=== PATIENT | female | born 1980 | race Caucasian/White ===

== ENCOUNTER 2016-09-19 14:05 | Emergency (ER) ==
[2016-09-19] MEDS ORDERED: BENADRYL IM ONE (16:28)
[2016-09-19] MEDS ORDERED: DECADRON IM ONE (16:28)
[2016-09-19] MEDS ORDERED: PEPCID PO ONE (16:28)
--- NOTE | 2016-09-19 16:38 | PROVIDER DOCUMENTATION ---
HPI-Rash/Wound/ReCheck - General Chief Complaint: Rash Stated Complaint: rash Time Seen by Provider: 09/19/16 15:31 Source: patient Allergies/Adverse Reactions: Allergies Allergy/AdvReac Type Severity Reaction Status Date / Time No Known Allergies Allergy Verified 09/19/16 17:01 Home Medications: Home Medication List Medication Instructions Recorded Confirmed Last Taken Type Acyclovir [Zovirax] 800 mg PO TID #30 tablet 09/19/16 Unknown Rx Citalopram [Celexa] 20 mg PO DAILY 09/19/16 09/19/16 09/19/16 06:30 History Famotidine [Pepcid] 20 mg PO BID #30 tablet 09/19/16 Unknown Rx Hydroxyzine [Atarax] 25 mg PO TID #30 tablet 09/19/16 Unknown Rx Methylprednisolone [Medrol Dosepak] 4 mg PO DIRECTED #1 package 09/19/16 Unknown Rx Sulfamethoxazole/Trimethoprim 1 each PO BID #14 tablet 09/19/16 Unknown Rx [Bactrim Ds Tablet] - History of Present Illness-Dermatology Nature of Presenting Problem: 36 y/o F c/o rash x 1 month. Pt states that she has had this rash before, was seen at [facility] and sent home with Abx and steroids x 2 months ago. States that the rash went away and came back 3 days later. States itchy in nature. Reports that it started on the LE and now has spread to the trunk and UE. Denies any other sxs. Review of Systems - Adult - REVIEW OF SYSTEMS - ADULT Constitutional: reports: no symptoms reported. denies: chills, fever Eyes: reports: no symptoms reported. denies: blurred vision, double vision Ears, Nose, Mouth & Throat: reports: no symptoms reported. denies: ear pain, nose pain Cardiovascular: reports: no symptoms reported. denies: chest pain, palpitations Respiratory: reports: no symptoms reported. denies: dyspnea on exertion, shortness of breath Gastrointestinal: reports: no symptoms reported. denies: nausea, vomiting Genitourinary: reports: no symptoms reported Musculoskeletal: reports: no symptoms reported. denies: joint pain, joint swelling Integumentary: reports: see HPI, itching, rash. denies: nail changes Neurological: reports: no symptoms reported. denies: numbness, paresthesia Psychiatric: reports: no symptoms reported Endocrine: reports: no symptoms reported. denies: cold intolerance, heat intolerance Hematologic/Lymphatic: reports: no symptoms reported. denies: easy bruising, prolonged bleeding Allergic/Immunologic: reports: no symptoms reported All Other Systems: Reviewed and Negative Past History - Adult - PAST MEDICAL HISTORY-ADULT Review of Records: reports: Nursing Assessment Review, Medications Reviewed Major Childhood Illnesses: reports: denies history Cardiovascular: reports: denies history Respiratory: reports: denies history Gastrointestinal: reports: denies history Obstetrical/Gynecological: reports: denies history Genitourinary: reports: denies history Musculoskeletal: reports: denies history Neurological: reports: denies history Endocrine/Immune: reports: denies history Other Conditions: reports: denies history - FAMILY HISTORY Family History: reviewed, not pertinent Physical Exam-General - PHYSICAL EXAM-ADULT Initial Vital Signs Reviewed: Yes - CONSTITUTIONAL General Appearance: alert, mild distress - EYES Eyes: pink conjunctivae - HEAD, EARS, NOSE, MOUTH & THROAT HENMT: normocephalic/atraumatic - NECK Neck: normal inspection - RESPIRATORY Respiratory: lungs clear, normal breath sounds. negative: crackles, rales, rhonchi, stridor, wheezing - CARDIOVASCULAR Cardiovascular: regular rate, rhythm. negative: bradycardia, tachycardia - MUSCULOSKELETAL Back Exam: normal inspection Extremity: normal gait - SKIN Integumentary: blanching, rash (blanching circular erythemetic lesions noted to bilat LE, UE, back, neck.). negative: embolic lesions, purpura, zoster-like rash - NEUROLOGIC Neurologic: negative: aphasia, sensory deficit - PSYCHIATRIC Psych/Mental Status: normal mood/affect, normal thought content, normal thought process, oriented x 3 Departure - Departure Time of Disposition Order: 19:07 DIAGNOSIS: Erythema multiforme, Rash and nonspecific skin eruption Disposition: HOME 01 Certified Medical Emergency: Emergent Condition: Stable Additional Instructions: Take medications as directed. Follow up with specialist for further management. Return if symptoms persist. ED Follow Up Instructions: You have been treated by a care provider in the Emergency Department. These instructions are being provided to you so you can have an understanding of how to care for yourself upon discharge. Upon discharge from the Emergency Department, you are responsible for making arrangements for follow-up care by a physician of your choice. Take all prescribed medications as directed. Return to the Emergency Department immediately for any new or worsening symptoms. You may call the Physician Referral phone number at [phone] to obtain a list of Physicians who are taking new patients. Prescriptions: Sulfamethoxazole/Trimethoprim [Bactrim Ds Tablet] 1 each PO BID #14 tablet Hydroxyzine [Atarax] 25 mg PO TID #30 tablet Methylprednisolone [Medrol Dosepak] 4 mg PO DIRECTED #1 package Famotidine [Pepcid] 20 mg PO BID #30 tablet Acyclovir [Zovirax] 800 mg PO TID #30 tablet Attestation - Physician/ ARLEY Attestation Patient care was provided by Advanced Practice Provider:: Yes Advanced Practice Provider:: Nancy Kumar Advanced Practice Provider documentation review:: The Mid-level provider documentation, treatment plan and medical decision making was reviewed by the physician who agrees with all treatment and medical decision making by the MLP.
[2016-09-19] MEDS ORDERED: BENADRYL IV ONE (16:48)
[2016-09-19] MEDS ORDERED: SOLU-MEDROL IV ONE (16:48)
[2016-09-19] MEDS ORDERED: PEPCID IV ONE (16:48)
[2016-09-19] MEDS ORDERED: SODIUM CHLORIDE 0.9% INJ ONE (16:48)
[2016-09-19 17:28] LABS: MANUAL DIFF NEEDED? NO
[2016-09-19 17:36] LABS: BASO% 0.2 % (0.0-0.8); EOS# 0.25 X1000 (0.0-0.7); EOS% 2.3 % (0.0-10.0); HEMATOCRIT 41.1 % (37.0-47.0); HEMOGLOBIN 14.2 g/dL (12.0-16.0); IMM GRAN# 0.03 X1000 (0.0-0.04); IMM GRAN% 0.3 % (0.0-0.5); LYMPH# 2.56 X1000 (1.2-3.4); MCH 29.8 PG (27-31); MCHC 34.5 g/dL (33-37); MCV 86.2 FL (81-99); MONO# 0.68 X1000 (0.11-0.59); MONO% 6.4 % (1.7-9.3); MPV 9.8 FL (7.4-10.4); NEUT% 66.8 % (42.2-75.2); PLT 411 X1000 (130-400); RBC 4.77 XMIL (4.2-5.4)
[2016-09-19 17:54] LABS: AGAP 15; ALBUMIN 4.1 g/dL (3.5-5.0); ALKALINE PHOSPHATASE 78 U/L (32-104); BUN 10 mg/dL (8-22); CALCIUM 9.3 mg/dL (8.8-10.2); CHLORIDE 100 mmol/L (98-107); COSMO 272; GOT 12 U/L (10-30); GPT 10 U/L (10-36); POTASSIUM 3.9 mmol/L (3.5-5.1); SODIUM 137 mmol/L (136-145); TCO2 22 mmol/L (25-35); TOTAL BILIRUBIN 0.12 mg/dL (0.20-1.00); TOTAL PROTEIN 7.1 g/dL (6.3-8.3)
[2016-09-19] MEDS ORDERED: ROCEPHIN 1 GM/NS 50 ML IV ONE (18:24)
[2016-09-19 19:01] LABS: SED RATE 12 mm/hr (0-20)
[2016-09-19 20:21] VITALS: BP 102/65
== END 2016-09-19 20:20 | disposition home or self-care (01) ==
LOC: ED 14:05
DX: L51.9 Erythema multiforme, unspecified (principal); R21 Rash and other nonspecific skin eruption; L29.9 Pruritus, unspecified; Z79.899 Other long term (current) drug therapy
CPT/HCPCS: 80053; 85025; 85651; 86592; J0696; J1200; J2930; S0028